=== PATIENT | female | born 1970 | race Two or more races ===

== ENCOUNTER 2025-10-17 17:32 | Inpatient (IN) | payer OTHER ==
[~2025-10-17] VITALS: Ht 165.1 cm; Wt 82.1 kg
--- NOTE | 2025-10-17 18:40 | ECG ---
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
--- NOTE | 2025-10-17 19:07 | DVH ---
EXAM: XY CHEST PORTABLE HISTORY: SOB, cough, congestion TECHNIQUE: 1 view of the chest COMPARISON: None FINDINGS/IMPRESSION: LUNGS: Small possible right-sided pleural effusion. Possible peripheral interstitial edema MEDIASTINUM: Unremarkable. BONES: No acute osseous abnormality. OTHER: None.
[2025-10-17 19:08] LABS: Hematocrit 34.3 % (36.0-46.0); Hemoglobin 11.1 g/dL (12.2-16.2); Mean Corpuscular Hemoglobin 29.0 pg (28.0-32.0); Mean Corpuscular Volume 89.6 fL (80.0-100.0); Nucleated Red Blood Cells % 0.0 %
[2025-10-17 19:28] LABS: Alanine Aminotransferase 26 U/L (7-40); Anion Gap 9 (5-15); BUN/Creatinine Ratio 12.2 (10.0-20.0); Calcium 9.3 mg/dL (8.7-10.4); Carbon Dioxide 24 mmol/L (20-31); Potassium 4.9 mmol/L (3.5-5.1); Sodium 144 mmol/L (136-145); Total Protein 7.7 g/dL (5.7-8.2)
[2025-10-17 19:29] LABS: Albumin 4.4 g/dL (3.2-4.8); Bilirubin, Total 0.4 mg/dL (0.2-1.0)
[2025-10-17 19:34] LABS: Alkaline Phosphatase 143 U/L (46-116); Blood Urea Nitrogen 30 mg/dL (9-23); Chloride 111 mmol/L (98-107); Glucose 142 mg/dL (74-106)
--- NOTE | 2025-10-17 20:18 | ED.PDOC ---
SOB-HPI HPI Comments HPI: Patient who is Indonesian-speaking presents to the ER with the chief complaint of shortness a breath x9 days. Patient states that she has been having shortness a breath, ear pain and discharge, chest pain and a sore throat for the past nine days which has been worsening since. Patient went to follow up with her PCP for which referred her to the ER for to follow up with a sharepoint solutions architect. Patient notes on also having bilateral lower extremity edema. Past Medical History: Left-sided partial blindness, diabetes, thyroid, hypertension Past Surgical History: Left knee surgery, cholecystectomy, appendectomy, hysterectomy Social History: Denies any HPI: Poor Historian. REVIEW OF SYSTEMS: CONSTITUTIONAL: Denies acute: fever, diaphoresis, chills, generalized weakness. HEAD: Denies acute: photophobia Eyes: Denies acute: Double vision, vision loss, eye pain, eye discharge. EARS: Denies acute: tinnitus, hearing loss, THROAT: Denies acute: swelling, difficulty swallowing , pain with swallowing, change in voice. NECK: Denies acute: neck pain, neck swelling, stiff neck. HEART: Denies acute : palpitations, LUNGS: Denies acute: wheezing, cough, hemoptysis ABDOMEN: Denies acute: abdominal pain, Nausea, Vomiting, diarrhea, melena , hematemesis, hematochezia SKIN: Denies acute: rash, redness, lesions, itchiness. EXTREMITIES: Denies acute: calf pain, numbness, tingling, weakness, denies pain in extremity. Denies acute: Low back pain. Neuro: Denies acute: focal neurological deficit, motor or sensory focal neurological deficit, tremors, seizure like activity, confusion, dizziness, change in mental status, loss of bowel or bladder function, cauda equina like symptoms. : Denies acute: dysuria, hematuria, flank pain, increase in urinary frequency. PSYCH: Denies acute: hallucination, suicidal ideation, homicidal ideation. FEMALE: Denies acute: abnormal vaginal bleeding, foul odor, unusual discharge. PHYSICAL EXAM: General: ----mild----acute distress, awake and alert. Head: normocephalic, atraumatic. No raccoon's eyes, no dutta sign. Neck: supple, trachea is midline, no swelling. Throat: Normal phonation. Eyes:, no erythema, no purulent discharge, no proptosis, no icterus. Heart: regular rate, regular rhythm, no significant murmur appreciated. Lungs: no apparent respiratory distress, Able to speak in full sentences. No wheezing, no rhonchi, no crackles. No stridors Clear to auscultation bilaterally. Abdomen: non tender to palpation, non distended, soft, no guarding, no rebound, + bowel sounds. Neuro: Awake, Alert, oriented to name, self, situation, follows commands GCS=15. Speech is normal. Skin: no petechia, no purpura, no cyanosis, non-pale, not jaundice. Lower extremities: --3/4 bilateral - Pitting edema no deformity, no focal swelling, no calf TTP. Makes eye contact. moves all four extremities. Face: no apparent facial droop. Ambulating in the ED with a walker ED COURSE: DISCLAIMER: This medical document was created using an electronic medical record system with voice recognition software and computerized dictation system. Although this document has been carefully reviewed, there might still be some phonetic and typographical errors. Occasional wrong-word or "sound-alike" substitutions may have occurred due to the inherent limitations of voice recognition software. These areas are purely typographical due to imperfections of the software programs and do not reflect any compromise in the patient's medical care. Please read the chart carefully and recognize, using context, where these substitutions have occurred. Chief Complaint: Shortness of Breath Time Seen by MD: 20:00 Reviewed notes: Nurses Notes, Medications, Allergies Information Source: Patient Mode of Arrival: Ambulatory Severity: Moderate EKG EKG : Pulse Rate (adult): 80 [place]: Normal Cardiac Rhythm: NSR Block: None Hypertrophy: None ST: Normal Was a procedure done? Was a procedure done?: No X-Ray, Labs, Meds, VS Vital Signs Date Time Temp Pulse Resp B/P (MAP) Pulse Ox O2 Delivery O2 Flow Rate FiO2 10/17/25 21:30 Room Air* 0 21 10/17/25 21:29 162/88 10/17/25 21:13 98.4 78 14 167/64 (98) 96 98.4 10/17/25 20:18 80 10/17/25 17:52 80 10/17/25 17:33 97.8 84 18 165/95 95 97.8 Lab Test 10/17/25 20:15 10/17/25 19:47 10/17/25 18:55 Range/Units Troponin I High Sensitivity 5 4 </=34 ng/L Influenza Type A Antigen Negative Negative Influenza Type B Antigen Negative Negative SARS-CoV-2 Antigen (Rapid) Negative NEGATIVE White Blood Count 7.1 4.4-10.8 10^3/uL Red Blood Count 3.82 L 4.0-5.20 10^6/uL Hemoglobin 11.1 L 12.2-16.2 g/dL Hematocrit 34.3 L 36.0-46.0 % Mean Corpuscular Volume 89.6 80.0-100.0 fL Mean Corpuscular Hemoglobin 29.0 28.0-32.0 pg Mean Corpuscular Hemoglobin Concent 32.4 32.0-36.0 g/dL Red Cell Distribution Width 13.6 11.8-14.3 % Platelet Count 311 140-450 10^3/uL Mean Platelet Volume 8.2 6.9-10.8 fL Neutrophils (%) (Auto) 69.9 37.0-80.0 % Lymphocytes (%) (Auto) 17.1 10.0-50.0 % Monocytes (%) (Auto) 8.7 0.0-12.0 % Eosinophils (%) (Auto) 3.6 0.0-7.0 % Basophils (%) (Auto) 0.7 0.0-2.0 % Neutrophils # (Auto) 5.0 1.6-8.6 10 ^3/uL Lymphocytes # (Auto) 1.2 0.4-5.4 10 ^3/uL Monocytes # (Auto) 0.6 0-1.3 10 ^3/uL Eosinophils # (Auto) 0.3 0-0.8 10 ^3/uL Basophils # (Auto) 0 0-0.2 10 ^3/uL Nucleated Red Blood Cells 0.0 % D-Dimer, Quantitative 0.76 H 0.0-0.49 mg/L FEU Sodium Level 144 136-145 mmol/L Potassium Level 4.9 3.5-5.1 mmol/L Chloride Level 111 H 98-107 mmol/L Carbon Dioxide Level 24 20-31 mmol/L Anion Gap 9 5-15 Blood Urea Nitrogen 30 H 9-23 mg/dL Creatinine 2.45 H 0.550-1.02 mg/dL Glomerular Filtration Rate Calc 23 >90 mL/min BUN/Creatinine Ratio 12.2 10.0-20.0 Serum Glucose 142 H 74-106 mg/dL Calcium Level 9.3 8.7-10.4 mg/dL Total Bilirubin 0.4 0.2-1.0 mg/dL Aspartate Amino Transferase (AST) 22 13-40 U/L Alanine Aminotransferase (ALT) 26 7-40 U/L Alkaline Phosphatase 143 H 46-116 U/L B-Type Natriuretic Peptide 195.00 0-100 pg/mL Total Protein 7.7 5.7-8.2 g/dL Albumin 4.4 3.2-4.8 g/dL Current Medications Medications (Trade) Dose Ordered Sig/Shawn Route Start Time Stop Time Status Last Admin Furosemide (Lasix Injection) 40 mg ONCE ONCE IV 10/17/25 21:00 10/17/25 21:01 DC 10/17/25 21:29 Aspirin (Ecotrin Enteric Coated Tablet) 325 mg ONCE ONCE PO 10/17/25 21:00 10/17/25 21:01 DC 10/17/25 21:29 Time of 1ST Reevaluation: 20:30 Reevaluation 1ST: Unchanged Patient Education/Counseling: Diagnosis, Treatment, Prognosis Family Education/Counseling: No Family Present SEPSIS Sepsis Screen Date sepsis recognized/suspect: Oct 17, 2025 Time Sepsis recognized/suspect: 1736 Recent Procedure: No On Antibiotic Therapy: No Respiratory Rate >20: No Heart Rate >90: No Temp<36 C (96.8 F) or >38.3 C: No SBP <90 or MAP <65 mmHG: No New Acute Mental Status Change: No Is the patient on CPAP, BIPAP,: No Physician Orders 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 Core 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 (10/17/25 ) Chest Portable (10/17/25 18:10) Vital Signs Date Time Temp Pulse Resp B/P (MAP) Pulse Ox O2 Delivery O2 Flow Rate FiO2 10/17/25 21:30 Room Air* 0 21 10/17/25 21:29 162/88 10/17/25 21:13 98.4 78 14 167/64 (98) 96 98.4 10/17/25 20:18 80 10/17/25 17:52 80 10/17/25 17:33 97.8 84 18 165/95 95 97.8 Laboratory Tests Test 10/17/25 18:55 White Blood Count 7.1 10^3/uL (4.4-10.8) Medications Medications Dose Ordered Sig/Shawn Route Start Time Stop Time Status Last Admin Dose Admin Aspirin 325 mg ONCE ONCE PO 10/17/25 21:00 10/17/25 21:01 DC 10/17/25 21:29 Furosemide 40 mg ONCE ONCE IV 10/17/25 21:00 10/17/25 21:01 DC 10/17/25 21:29 Departure 1 Departure Time of Disposition: 20:48 Impression: Primary Impression: Chest pain Additional Impressions: Dyspnea Acute renal insufficiency Disposition: ADMITTED INPATIENT Admit to: Tele Condition: Guarded e-Prescriptions No Active Prescriptions or Reported Meds Discharged With: Self Critical Care Note Critical Care Time?: No I personally scribed for XIAO MAO DO ([email or web address]) on 10/17/25 at 20:18. Electronically submitted by Saúl Enamorado ([email or web address]). XIAO MAO DO Oct 17, 2025 20:18
[2025-10-17 20:49] LABS: COVID19 ANTIGEN SOFIA FIA NEGATIVE (NEGATIVE)
[2025-10-17] MEDS: ASPirin-EC 325mg tab PO ONE (21:29)
[2025-10-17] MEDS: FUROSEMIDE 40 MG/4 ML VIAL IV ONE (21:29)
[2025-10-17] MEDS ORDERED: DEXTROSE (50%) 50ML SYRG IV PRN (23:00)
[2025-10-17] MEDS ORDERED: ONDANSETRON HCL 4 MG/2 ML VIAL IV PRN (23:00)
[2025-10-18] VITALS (8 sets, daily range): BP systolic 120–168; BP diastolic 71–84; PULSE 74–81; RESP 17–21; TEMP 98.1–98.3; O2SAT 96–99
[2025-10-18] MEDS ORDERED: DOCU-265 PO (01:21)
[2025-10-18] MEDS ORDERED: ATOR40TA52 PO (01:21)
[2025-10-18] MEDS ORDERED: ERGO1CAP12 PO (01:21)
[2025-10-18] MEDS ORDERED: GABA-1250 PO (01:21)
[2025-10-18] MEDS ORDERED: LISI20TA56 PO (01:21)
[2025-10-18] MEDS ORDERED: DAPA1TAB4 PO (01:21)
[2025-10-18] MEDS ORDERED: LEVO125T7 PO (01:21)
[2025-10-18] MEDS ORDERED: SODI10PA PO (01:21)
[2025-10-18] MEDS ORDERED: INSU1.2I SC (01:21)
[2025-10-18] MEDS ORDERED: AMLO1TAB23 PO (01:21)
[2025-10-18] MEDS ORDERED: HYDR50TA47 PO (01:21)
[2025-10-18] MEDS ORDERED: ASPI-325 PO (01:21)
[2025-10-18] MEDS ORDERED: GLIP5TAB21 PO (01:21)
[2025-10-18] MEDS: ACETAMINOPHEN 325 MG TAB PO PRN (02:43)
--- NOTE | 2025-10-18 04:25 | DVHHP2 ---
History of Present Illness Reason for Visit: Shortness for breath History of Present Illness 55-year-old female presents for evaluation of shortness for breath. Patient reports a one-week history of shortness for breath with associated dizziness. She also reports mild bilateral lower extremity edema. Denies cough or fever. No abdominal pain. Past Medical History Diabetes mellitus, thyroid, hypertension, kidney disease Past Surgical History Left knee surgery, cholecystectomy, appendectomy, hysterectomy Family History Noncontributory Smoke: No ALCOHOL: none Drugs: None Lives: with Family Review of Systems Review of Systems Review of systems are currently negative otherwise addressed in HPI. Allergies: Coded Allergies: NO KNOWN ALLERGIES (Unverified , 09/19/25) Medications Current Medications Medications Dose Ordered Sig/Shawn Route Start Time Stop Time Status Last Admin Dose Admin Furosemide 40 mg DAILY IV 10/18/25 10:00 Amlodipine Besylate 10 mg DAILY PO 10/18/25 10:00 Sodium Bicarbonate 650 mg BID PO 10/18/25 10:00 Hydralazine HCl 10 mg Q6HP PRN PO 10/17/25 23:00 10/18/25 00:03 10 MG Diagnostic Test (Pha) 1 strip ACHS 10/18/25 07:00 Insulin Human Regular ACHS SC 10/18/25 07:00 Dextrose 50 ml UD PRN IV 10/17/25 23:00 Ondansetron HCl 4 mg Q4HP PRN IV 10/17/25 23:00 Acetaminophen 650 mg Q6HP PRN PO 10/17/25 23:00 10/18/25 02:43 650 MG Exam Vital Signs Vital Signs Date Time Temp Pulse Resp B/P (MAP) Pulse Ox O2 Delivery O2 Flow Rate FiO2 10/18/25 02:43 98.5 10/18/25 01:17 81 18 97 Room Air* 0 21 10/18/25 00:03 165/75 Exam Gen: 55-year-old female in mild distress Skin: Warm, dry, normal color and texture, no rash. HEENT: Normocephalic atraumatic, mucous membranes moist and pink. Neck: Cervical and supraclavicular nodes normal without enlargement, trachea is midline, thyroid gland is normal without masses. Pulmonary: Clear to auscultation and percussion bilaterally. Cardiac: Regular rate and rhythm. No murmur Abdomen: Soft, nontender, nondistended, bowel sounds present all 4 quadrants, no guarding, no rigidity, no organomegaly. Extremities: No cyanosis, clubbing, no edema Neuro: Cranial nerves II through XII grossly intact, normal affect and speech, no focal motor deficits. Labs/Xrays ORDERING PHYSICIAN: XIAO MAO DO PROCEDURE(s): CXRP - CHEST PORTABLE REASON: SOB, cough, congestion ORDER NUMBER(s): [id number], ACCESSION NUMBER(s): [id number] EXAM: XY CHEST PORTABLE HISTORY: SOB, cough, congestion TECHNIQUE: 1 view of the chest COMPARISON: None FINDINGS/IMPRESSION: LUNGS: Small possible right-sided pleural effusion. Possible peripheral interstitial edema MEDIASTINUM: Unremarkable. BONES: No acute osseous abnormality. OTHER: None. Labs Test 10/17/25 20:15 10/17/25 19:47 10/17/25 18:55 Range/Units Troponin I High Sensitivity 5 </=34 ng/L Influenza Type A Antigen Negative Negative Influenza Type B Antigen Negative Negative SARS-CoV-2 Antigen (Rapid) Negative NEGATIVE White Blood Count 7.1 4.4-10.8 10^3/uL Red Blood Count 3.82 L 4.0-5.20 10^6/uL Hemoglobin 11.1 L 12.2-16.2 g/dL Hematocrit 34.3 L 36.0-46.0 % Mean Corpuscular Volume 89.6 80.0-100.0 fL Mean Corpuscular Hemoglobin 29.0 28.0-32.0 pg Mean Corpuscular Hemoglobin Concent 32.4 32.0-36.0 g/dL Red Cell Distribution Width 13.6 11.8-14.3 % Platelet Count 311 140-450 10^3/uL Mean Platelet Volume 8.2 6.9-10.8 fL Neutrophils (%) (Auto) 69.9 37.0-80.0 % Lymphocytes (%) (Auto) 17.1 10.0-50.0 % Monocytes (%) (Auto) 8.7 0.0-12.0 % Eosinophils (%) (Auto) 3.6 0.0-7.0 % Basophils (%) (Auto) 0.7 0.0-2.0 % Neutrophils # (Auto) 5.0 1.6-8.6 10 ^3/uL Lymphocytes # (Auto) 1.2 0.4-5.4 10 ^3/uL Monocytes # (Auto) 0.6 0-1.3 10 ^3/uL Eosinophils # (Auto) 0.3 0-0.8 10 ^3/uL Basophils # (Auto) 0 0-0.2 10 ^3/uL Nucleated Red Blood Cells 0.0 % D-Dimer, Quantitative 0.76 H 0.0-0.49 mg/L FEU Sodium Level 144 136-145 mmol/L Potassium Level 4.9 3.5-5.1 mmol/L Chloride Level 111 H 98-107 mmol/L Carbon Dioxide Level 24 20-31 mmol/L Anion Gap 9 5-15 Blood Urea Nitrogen 30 H 9-23 mg/dL Creatinine 2.45 H 0.550-1.02 mg/dL Glomerular Filtration Rate Calc 23 >90 mL/min BUN/Creatinine Ratio 12.2 10.0-20.0 Serum Glucose 142 H 74-106 mg/dL Calcium Level 9.3 8.7-10.4 mg/dL Total Bilirubin 0.4 0.2-1.0 mg/dL Aspartate Amino Transferase (AST) 22 13-40 U/L Alanine Aminotransferase (ALT) 26 7-40 U/L Alkaline Phosphatase 143 H 46-116 U/L B-Type Natriuretic Peptide 195.00 0-100 pg/mL Total Protein 7.7 5.7-8.2 g/dL Albumin 4.4 3.2-4.8 g/dL SEPSIS Sepsis Screen Date sepsis recognized/suspect: Oct 17, 2025 Time Sepsis recognized/suspect: 1736 Recent Procedure: No On Antibiotic Therapy: No Respiratory Rate >20: No Heart Rate >90: No Temp<36 C (96.8 F) or >38.3 C: No SBP <90 or MAP <65 mmHG: No New Acute Mental Status Change: No Is the patient on CPAP, BIPAP,: No Physician Orders *Dr. [facility] (10/17/25 22:57) Furosemide Injection (Lasix Injection) (10/18/25 10:00) Amlodipine Tablet (Norvasc Tablet) (10/18/25 10:00) Sodium Bicarb Tab (10/18/25 10:00) Hydralazine Hcl Tablet (Apresoline Table (10/17/25 23:00) Basic Metabolic Panel (10/18/25 04:00) Glucose Blood (Accu-Chek Comfort Curve T (10/18/25 07:00) Insulin R (Human) (Insulin R) (10/18/25 07:00) Dextrose 50% Syringe (10/17/25 23:00) Admit (10/17/25 22:57) Renal Standard(2gna,3gk,Lopho) (10/18/25 Breakfast) Ondansetron Hcl (Zofran) (10/17/25 23:00) Complete Blood Count (10/18/25 04:00) Echo 2d Mode Cardiac Dop (10/17/25 22:57) Condition: Stable (10/17/25 22:57) Acetaminophen Tablet (Tylenol Tablet) (10/17/25 23:00) Bedrest With Bathroom Privileg (10/17/25 22:57) Vital Signs Date Time Temp Pulse Resp B/P (MAP) Pulse Ox O2 Delivery O2 Flow Rate FiO2 10/18/25 02:43 98.5 10/18/25 01:17 81 18 97 Room Air* 0 21 10/18/25 00:03 165/75 10/18/25 00:00 75 16 165/75 (105) 96 10/17/25 21:30 Room Air* 0 21 10/17/25 21:29 162/88 10/17/25 21:13 98.4 78 14 167/64 (98) 96 98.4 Laboratory Tests Test 10/17/25 18:55 White Blood Count 7.1 10^3/uL (4.4-10.8) Medications Medications Dose Ordered Sig/Shawn Route Start Time Stop Time Status Last Admin Dose Admin Acetaminophen 650 mg Q6HP PRN PO 10/17/25 23:00 10/18/25 02:43 650 MG Aspirin 325 mg ONCE ONCE PO 10/17/25 21:00 10/17/25 21:01 DC 10/17/25 21:29 325 MG Furosemide 40 mg ONCE ONCE IV 10/17/25 21:00 10/17/25 21:01 DC 10/17/25 21:29 40 MG Hydralazine HCl 10 mg Q6HP PRN PO 10/17/25 23:00 10/18/25 00:03 10 MG Assessment/Plan Assessment/Plan Assessment Acute renal failure Diabetes mellitus Hypertension ? Heart failure Plan Admit the patient to Med surge to the hospitalist Nephrology consultation Echocardiogram pending Resume home medications Continue treatment per orders. Plan discussed with: Patient My Orders Orders - DILAN ALLAN Procedure Category Date Status Time *Dr. [facility] CONS 10/17/25 Transmitted -[place] 22:57 Furosemide Injection PHA 10/18/25 In Process (Lasix Injection) 10:00 Amlodipine Tablet PHA 10/18/25 In Process (Norvasc Tablet) 10:00 Sodium Bicarb Tab PHA 10/18/25 In Process 10:00 Hydralazine Hcl PHA 10/17/25 In Process Tablet (Apresoline 23:00 Basic Metabolic Panel LAB 10/18/25 Logged 04:00 Glucose Blood PHA 10/18/25 In Process (Accu-Chek Comfort 07:00 Insulin R (Human) PHA 10/18/25 In Process (Insulin R) 07:00 Dextrose 50% Syringe PHA 10/17/25 In Process 23:00 Admit ADMIT 10/17/25 Transmitted 22:57 Renal DIET 10/18/25 Transmitted Standard(2gna,3gk,Lopho) Breakfast Ondansetron Hcl PHA 10/17/25 In Process (Zofran) 23:00 Complete Blood Count LAB 10/18/25 Logged 04:00 Echo 2d Mode Cardiac US 10/17/25 Logged DOP 22:57 Condition: Stable MINDY 10/17/25 In Process 22:57 Acetaminophen Tablet PHA 10/17/25 In Process (Tylenol Tablet) 23:00 Bedrest With Bathroom MINDY 10/17/25 In Process Privileg 22:57 Date of Service: Oct 17, 2025 Billing Provider: DILAN ALLAN Common Visit Codes: [id number] INP/OBS CARE (HIGH) DILAN ALLAN Oct 18, 2025 04:24
[2025-10-18 06:34] LABS: Hematocrit 32.1 % (36.0-46.0); Hemoglobin 10.5 g/dL (12.2-16.2); Mean Corpuscular Hemoglobin 29.1 pg (28.0-32.0); Mean Corpuscular Volume 89.3 fL (80.0-100.0); Nucleated Red Blood Cells % 0.0 %
[2025-10-18 06:48] LABS: Potassium 4.4 mmol/L (3.5-5.1); Sodium 141 mmol/L (136-145)
[2025-10-18 06:49] LABS: Anion Gap 9 (5-15); Calcium 9.0 mg/dL (8.7-10.4); Carbon Dioxide 23 mmol/L (20-31)
[2025-10-18 06:54] LABS: BUN/Creatinine Ratio 14.2 (10.0-20.0)
[2025-10-18 06:58] LABS: Blood Urea Nitrogen 31 mg/dL (9-23); Chloride 109 mmol/L (98-107); Glucose 118 mg/dL (74-106)
[2025-10-18] MEDS: ACCU-CHEK COMFORT CURVE STRIP VI SCH (07:00)
[2025-10-18] MEDS: InsuLIN REG 1unit/0.01ml Soln (100units/ml) SC SCH (07:00)
[2025-10-18] MEDS: SODIUM BICARBONATE 650 MG TAB PO SCH (09:24)
[2025-10-18] MEDS: FUROSEMIDE 40 MG/4 ML VIAL IV SCH (09:24)
--- NOTE | 2025-10-18 11:45 | DVHPN2 ---
Subjective The patient seen and examined at bedside, still have shortness of breath. The patient on 2 L of oxygen. Reviewed: Care Plan, H&P, Labs, Medications, Previous Orders, Radiology Changes from previous H/P or p: No Changes Objective Vitals Vital Signs Date Time Temp Pulse Resp B/P (MAP) Pulse Ox O2 Delivery O2 Flow Rate FiO2 10/18/25 09:25 168/83 10/18/25 09:00 98.1 74 21 98 98.1 10/18/25 01:17 Room Air* 0 21 Intake/Output Intake and Output 10/18/25 07:00 Intake Total 150 ml Balance 150 ml Intake Oral 150 ml # Voids 3 General Appearance: Alert, Oriented X3, Cooperative, No acute distress HEENT: Atraumatic, PERRLA, EOMI, Mucous membr. moist/pink Neck: Supple Lungs: Clear to auscultation, Normal air movement Cardiovascular: Regular rate, Normal S1, Normal S2, No murmurs, Gallops Abdomen: Normal bowel sounds, Soft, No tenderness Extremities: Other (+2 edema bilateral) Neuro: Cranial nerves 3-12 NL Psych/Mental Status: Mental status NL Medications Current Medications Medications Dose Ordered Sig/Shawn Route Start Time Stop Time Status Last Admin Dose Admin Furosemide 40 mg DAILY IV 10/18/25 10:00 10/18/25 09:24 40 MG Amlodipine Besylate 10 mg DAILY PO 10/18/25 10:00 10/18/25 09:25 10 MG Sodium Bicarbonate 650 mg BID PO 10/18/25 10:00 10/18/25 09:24 650 MG Hydralazine HCl 10 mg Q6HP PRN PO 10/17/25 23:00 10/18/25 00:03 10 MG Diagnostic Test (Pha) 1 strip ACHS 10/18/25 07:00 10/18/25 07:00 1 STRIP Insulin Human Regular ACHS SC 10/18/25 07:00 Dextrose 50 ml UD PRN IV 10/17/25 23:00 Ondansetron HCl 4 mg Q4HP PRN IV 10/17/25 23:00 Acetaminophen 650 mg Q6HP PRN PO 10/17/25 23:00 10/18/25 02:43 650 MG Laboratory Results Laboratory Tests 10/18/25 05:46 Chemistry Test 10/17/25 18:55 10/18/25 05:46 Albumin 4.4 g/dL (3.2-4.8) Calcium Level 9.3 mg/dL (8.7-10.4) 9.0 mg/dL (8.7-10.4) Total Protein 7.7 g/dL (5.7-8.2) Coagulation Test 10/17/25 18:55 D-Dimer, Quantitative 0.76 mg/L FEU (0.0-0.49) H Cardiac Markers Test 10/17/25 18:55 B-Type Natriuretic Peptide 195.00 pg/mL (0-100) LFT Test 10/17/25 18:55 Alanine Aminotransferase (ALT) 26 U/L (7-40) Alkaline Phosphatase 143 U/L (46-116) H Aspartate Amino Transferase (AST) 22 U/L (13-40) Total Bilirubin 0.4 mg/dL (0.2-1.0) Labs and/or images reviewed: Labs reviewed by me Assessment/Plan Assessment/Plan Acute renal failure /Chronic renal failure stage 3 Hyperkalemia Diabetes mellitus Hypertension Bilateral LE edema Muscle spasm, bilateral UE and LE Acute Congestive Heart failure, type unknown Continue current management I will check her Magnesium I will start her on SSI moderate scale I will consult tool repairer bench I will consult Licensed Surveyor I will order 2 D echo Continue Lasix Plan discussed with: Patient Date of Service: Oct 18, 2025 Billing Provider: NORY ALMANZA MD Common Visit Codes: [id number] INP/OBS CARE(HIGH) NORY ALMANZA MD Oct 18, 2025 11:45
[2025-10-18 13:37] LABS: Chloride 104 mmol/L (98-107); Sodium 140 mmol/L (136-145)
[2025-10-18 13:38] LABS: Anion Gap 10 (5-15); Calcium 9.9 mg/dL (8.7-10.4); Carbon Dioxide 26 mmol/L (20-31)
[2025-10-18 13:43] LABS: BUN/Creatinine Ratio 15.3 (10.0-20.0); Blood Urea Nitrogen 35 mg/dL (9-23); Glucose 124 mg/dL (74-106); Potassium 5.5 mmol/L (3.5-5.1)
[2025-10-18 13:44] LABS: Magnesium 2.5 mg/dL (1.6-2.6)
--- NOTE | 2025-10-18 16:30 | DVHINCON2 ---
Date of service: Oct 18, [address] Mirna Marie Reason for Consultation DANYELL on CKD History of Present Illness 55 Y/O F with history of CKD, DM, HTN, cholecystectomy, appendectomy, and hysterectomy presented with chief complaint of SOB, associated with chest pain, left sided, distended abdomen, bilateral lower extremity swelling for the past 9 days. CXR shows interstitial edema. Patient was started on IV loop diuretics. In the ER BP: 165/95 mmHg. labs showed Cr of 2.45 mg/dl. it has stayed stable over the past 2 days, and most recent Cr is 2.29 mg/dl. K 4.4 to 5.5 mmol/l. WBC is 6.7, and Hb: 10.5 g/dl. Nephrology consulted for DANYELL on CKD. Primary car unloader is Dr. Davis Past Medical History Past Medical History: Left-sided partial blindness, diabetes, thyroid disease, hypertension Past Surgical History Past Surgical History: Left knee surgery, cholecystectomy, appendectomy, hysterectomy Allergies: Coded Allergies: NO KNOWN ALLERGIES (Unverified , 09/19/25) Home Meds Reported Medications Dapagliflozin Propanediol (Farxiga) 10 Mg Tab, 5 MG PO DAILY, TAB 10/18/25 Insulin Glargine (Toujeo Solostar) 300 Unit/Ml Inj, SC 10/18/25 Docusate Sodium (Docusate Sodium) 100 Mg Cap, 1 CAP PO DAILY 10/18/25 Levothyroxine Sodium (Levothyroxine Sodium) 125 Mcg Tab, 1 TAB PO DAILY 10/18/25 Gabapentin (Gabapentin) 300 Mg Cap, 1 CAP PO BID 10/18/25 Hydralazine Hcl (Hydralazine Hcl) 50 Mg Tab, 1 TAB PO TID 10/18/25 Amlodipine Besylate (Amlodipine Besylate) 10 Mg Tab, 1 TAB PO DAILY 10/18/25 Atorvastatin Calcium (ATORVASTATIN CALCIUM) 40 Mg Tab, 1 TAB PO 10/18/25 Aspirin (Aspirin Low Dose) 81 Mg Tab, 1 TAB PO DAILY 10/18/25 Ergocalciferol (Vitamin D) 50,000 Unit Cap, 1 CAP PO QWEEKLY 10/18/25 Glipizide (Glipizide) 5 Mg Tab, 1 TAB PO BID 10/18/25 Sodium Zirconium Cyclosilicate (Lokelma) 10 Gm Juan Carlos, 1 PKT PO DAILY 10/18/25 Lisinopril (Lisinopril) 20 Mg Tab, 1 TAB PO DAILY 10/18/25 Current Medications Current Medications Medications (Trade) Dose Ordered Sig/Shawn Route PRN Reason Start Time Stop Time Status Last Admin Furosemide (Lasix Injection) 40 mg DAILY IV 10/18/25 10:00 10/18/25 09:24 Amlodipine Besylate (Norvasc Tablet) 10 mg DAILY PO 10/18/25 10:00 10/18/25 09:25 Sodium Bicarbonate 650 mg BID PO 10/18/25 10:00 10/18/25 09:24 Hydralazine HCl (Apresoline Tablet) 10 mg Q6HP PRN PO SBP>150 10/17/25 23:00 10/18/25 00:03 Diagnostic Test (Pha) (Accu-Chek Comfort Curve T) 1 strip ACHS 10/18/25 07:00 10/18/25 12:08 Insulin Human Regular (InsuLIN R) ACHS SC 10/18/25 07:00 Dextrose 50 ml UD PRN IV Blood Sugar LESS THAN 60 10/17/25 23:00 Ondansetron HCl (Zofran) 4 mg Q4HP PRN IV NAUSEA / VOMITING 10/17/25 23:00 Acetaminophen (Tylenol Tablet) 650 mg Q6HP PRN PO PAIN SCALE 1-3 OR TEMP>100.4 10/17/25 23:00 10/18/25 02:43 Family History: Diabetes mellitus G8 MOTHER G8 FATHER Review of Systems As per HPI, all other systems were reviewed and are negative H&P Exam Vital Signs/I&O Vital Sign Date Time Temp Pulse Resp B/P (MAP) Pulse Ox O2 Delivery O2 Flow Rate FiO2 10/18/25 12:54 98.2 77 21 156/84 (108) 99 98.2 10/18/25 08:00 Nasal Cannula* 3 32 Intake and Output 10/17/25 10/18/25 19:00 07:00 Intake Total 150 ml Balance 150 ml Intake Oral 150 ml # Voids 3 Physical Exam Gen: NAD HEENT: NC,AT Lungs: crackles lung bases Cardiac: RRR, no murmur Abd: soft, no tenderness Ext: +1 edema b/l legs Neuro: no focal deficits Labs/Diagnostic Data Labs/Diagnostic Data Laboratory Tests Test 10/18/25 13:04 10/18/25 11:59 10/18/25 05:46 10/17/25 20:15 Range/Units Sodium Level 140 141 136-145 mmol/L Potassium Level 5.5 H 4.4 3.5-5.1 mmol/L Chloride Level 104 109 H 98-107 mmol/L Carbon Dioxide Level 26 23 20-31 mmol/L Anion Gap 10 9 5-15 Blood Urea Nitrogen 35 H 31 H 9-23 mg/dL Creatinine 2.29 H 2.18 H 0.550-1.02 mg/dL Glomerular Filtration Rate Calc 25 26 >90 mL/min BUN/Creatinine Ratio 15.3 14.2 10.0-20.0 Serum Glucose 124 H 118 H 74-106 mg/dL Calcium Level 9.9 9.0 8.7-10.4 mg/dL Phosphorus Level 5.1 2.4-5.1 mg/dL Magnesium Level 2.5 1.6-2.6 mg/dL POC Glucose 143 H 123 H 70-106 mg/dl White Blood Count 6.7 4.4-10.8 10^3/uL Red Blood Count 3.60 L 4.0-5.20 10^6/uL Hemoglobin 10.5 L 12.2-16.2 g/dL Hematocrit 32.1 L 36.0-46.0 % Mean Corpuscular Volume 89.3 80.0-100.0 fL Mean Corpuscular Hemoglobin 29.1 28.0-32.0 pg Mean Corpuscular Hemoglobin Concent 32.6 32.0-36.0 g/dL Red Cell Distribution Width 13.7 11.8-14.3 % Platelet Count 264 140-450 10^3/uL Mean Platelet Volume 8.4 6.9-10.8 fL Neutrophils (%) (Auto) 69.4 37.0-80.0 % Lymphocytes (%) (Auto) 16.7 10.0-50.0 % Monocytes (%) (Auto) 9.0 0.0-12.0 % Eosinophils (%) (Auto) 4.1 0.0-7.0 % Basophils (%) (Auto) 0.8 0.0-2.0 % Neutrophils # (Auto) 4.6 1.6-8.6 10 ^3/uL Lymphocytes # (Auto) 1.1 0.4-5.4 10 ^3/uL Monocytes # (Auto) 0.6 0-1.3 10 ^3/uL Eosinophils # (Auto) 0.3 0-0.8 10 ^3/uL Basophils # (Auto) 0.1 0-0.2 10 ^3/uL Nucleated Red Blood Cells 0.0 % Troponin I High Sensitivity 5 </=34 ng/L Test 10/17/25 19:47 10/17/25 18:55 Range/Units Influenza Type A Antigen Negative Negative Influenza Type B Antigen Negative Negative SARS-CoV-2 Antigen (Rapid) Negative NEGATIVE White Blood Count 7.1 4.4-10.8 10^3/uL Red Blood Count 3.82 L 4.0-5.20 10^6/uL Hemoglobin 11.1 L 12.2-16.2 g/dL Hematocrit 34.3 L 36.0-46.0 % Mean Corpuscular Volume 89.6 80.0-100.0 fL Mean Corpuscular Hemoglobin 29.0 28.0-32.0 pg Mean Corpuscular Hemoglobin Concent 32.4 32.0-36.0 g/dL Red Cell Distribution Width 13.6 11.8-14.3 % Platelet Count 311 140-450 10^3/uL Mean Platelet Volume 8.2 6.9-10.8 fL Neutrophils (%) (Auto) 69.9 37.0-80.0 % Lymphocytes (%) (Auto) 17.1 10.0-50.0 % Monocytes (%) (Auto) 8.7 0.0-12.0 % Eosinophils (%) (Auto) 3.6 0.0-7.0 % Basophils (%) (Auto) 0.7 0.0-2.0 % Neutrophils # (Auto) 5.0 1.6-8.6 10 ^3/uL Lymphocytes # (Auto) 1.2 0.4-5.4 10 ^3/uL Monocytes # (Auto) 0.6 0-1.3 10 ^3/uL Eosinophils # (Auto) 0.3 0-0.8 10 ^3/uL Basophils # (Auto) 0 0-0.2 10 ^3/uL Nucleated Red Blood Cells 0.0 % D-Dimer, Quantitative 0.76 H 0.0-0.49 mg/L FEU Sodium Level 144 136-145 mmol/L Potassium Level 4.9 3.5-5.1 mmol/L Chloride Level 111 H 98-107 mmol/L Carbon Dioxide Level 24 20-31 mmol/L Anion Gap 9 5-15 Blood Urea Nitrogen 30 H 9-23 mg/dL Creatinine 2.45 H 0.550-1.02 mg/dL Glomerular Filtration Rate Calc 23 >90 mL/min BUN/Creatinine Ratio 12.2 10.0-20.0 Serum Glucose 142 H 74-106 mg/dL Calcium Level 9.3 8.7-10.4 mg/dL Total Bilirubin 0.4 0.2-1.0 mg/dL Aspartate Amino Transferase (AST) 22 13-40 U/L Alanine Aminotransferase (ALT) 26 7-40 U/L Alkaline Phosphatase 143 H 46-116 U/L Troponin I High Sensitivity 4 </=34 ng/L B-Type Natriuretic Peptide 195.00 0-100 pg/mL Total Protein 7.7 5.7-8.2 g/dL Albumin 4.4 3.2-4.8 g/dL Assessment Assessment: DANYELL secondary to cardiorenal syndrome CKD III Chest pain , negative serial troponin. r/o ACS Acute on Chronic CHF, unknown EF. HTN DM Fluid overload Metabolic acidosis Hypothyroidism Plan: Continue Lasix 40 mg IV daily fluid restriction edema has been improving. Lokelma 10 g PO x1 UA, UPCR Amlodipine 10 mg daily sodium bicarb 650 mg PO BID Resume levothyroxine Obtain 2D Echo Cardiology consult Strict I&Os Plan discussed with: Patient, Spouse SAMSON SABA MD Oct 18, 2025 16:30
[2025-10-18] MEDS: SODIUM ZIRCONIUM CYCL 10 GM PAK PO ONE (17:19)
[2025-10-18 23:55] LABS: Protein, Urine 183.4 mg/dL (1-14)
[2025-10-19] VITALS (8 sets, daily range): BP systolic 112–141; BP diastolic 64–88; PULSE 70–91; RESP 16–20; TEMP 97.6–98.3; O2SAT 95–100
[2025-10-19 00:33] LABS: Urine Protein, UAD 2+ (Negative)
--- NOTE | 2025-10-19 13:53 | DVHPN2 ---
Subjective The patient seen and examined at bedside, still have shortness of breath. The patient on 2 L of oxygen. Reviewed: Care Plan, H&P, Labs, Medications, Previous Orders, Radiology Changes from previous H/P or p: No Changes Objective Vitals Vital Signs Date Time Temp Pulse Resp B/P (MAP) Pulse Ox O2 Delivery O2 Flow Rate FiO2 10/19/25 13:00 98.1 81 20 137/75 (95) 95 98.1 10/19/25 08:10 Nasal Cannula* 2 28 Intake/Output Intake and Output 10/19/25 07:00 Intake Total 1305 ml Balance 1305 ml Intake Oral 1305 ml # Voids 10 General Appearance: Alert, Oriented X3, Cooperative, No acute distress HEENT: Atraumatic, PERRLA, EOMI, Mucous membr. moist/pink Neck: Supple Lungs: Clear to auscultation, Normal air movement Cardiovascular: Regular rate, Normal S1, Normal S2, No murmurs, Gallops Abdomen: Normal bowel sounds, Soft, No tenderness Extremities: Other (+2 edema bilateral) Neuro: Cranial nerves 3-12 NL Psych/Mental Status: Mental status NL Medications Current Medications Medications Dose Ordered Sig/Shawn Route Start Time Stop Time Status Last Admin Dose Admin Furosemide 40 mg DAILY IV 10/18/25 10:00 10/19/25 09:36 40 MG Amlodipine Besylate 10 mg DAILY PO 10/18/25 10:00 10/19/25 09:37 10 MG Sodium Bicarbonate 650 mg BID PO 10/18/25 10:00 10/19/25 09:37 650 MG Hydralazine HCl 10 mg Q6HP PRN PO 10/17/25 23:00 10/18/25 00:03 10 MG Diagnostic Test (Pha) 1 strip ACHS 10/18/25 07:00 10/19/25 11:49 1 STRIP Insulin Human Regular ACHS SC 10/18/25 07:00 10/19/25 11:52 6 UNITS Dextrose 50 ml UD PRN IV 10/17/25 23:00 Ondansetron HCl 4 mg Q4HP PRN IV 10/17/25 23:00 Acetaminophen 650 mg Q6HP PRN PO 10/17/25 23:00 10/18/25 02:43 650 MG Laboratory Results Laboratory Tests 10/18/25 05:46 10/18/25 13:04 Urinalysis Test 10/18/25 23:11 Urine Color Light-yellow (Yellow) Urine Clarity Clear (Clear) Urine pH 7.0 (5.0-9.0) Urine Specific [place] 1.011 (1.001-1.035) Urine Protein 2+ (Negative) H Urine Ketones Negative (Negative) Urine Blood Trace /uL (Negative) H Urine Nitrite Negative (Negative) Urine Bilirubin Negative (Negative) Urine Urobilinogen Normal mg/dL (Negative) Urine Leukocyte Esterase Negative /uL (Negative) Urine RBC 2 /hpf (0 - 4) Urine Microscopic WBC 1 /HPF (0-5) Urine Squamous Epithelial Cells Few /hpf (<5) Urine Bacteria None seen /hpf (None Seen) Urine Creatinine 54.62 mg/dL (30.0-125.0) Urine Protein/Creatinine Ratio 3.36 Urine Glucose 4+ mg/dL (Normal) H Urine Total Protein 183.4 mg/dL (1-14) H Labs and/or images reviewed: Labs reviewed by me Assessment/Plan Assessment/Plan Acute renal failure /Chronic renal failure stage 3 Hyperkalemia Diabetes mellitus Hypertension Bilateral LE edema Muscle spasm, bilateral UE and LE Acute Congestive Heart failure, type unknown Continue current management I will check her Magnesium I will start her on SSI moderate scale Appreciate canvas goods supervisor input I will follow up with 2 D echo Continue Lasix Plan discussed with: Patient Date of Service: Oct 19, 2025 Billing Provider: NORY ALMANZA MD Common Visit Codes: [id number] INP/OBS CARE(HIGH) NORY ALMANZA MD Oct 19, 2025 13:53
--- NOTE | 2025-10-19 14:27 | DVHPN2 ---
Progress Note - Dictate Date Seen: Oct 19, 2025 Medical Necessity Reason Pt with a Central, PICC or Fol: No vital signs Vital Sign Date Time Temp Pulse Resp B/P (MAP) Pulse Ox O2 Delivery O2 Flow Rate FiO2 10/19/25 13:00 98.1 81 20 137/75 (95) 95 98.1 10/19/25 08:10 Nasal Cannula* 2 28 Total Intake and Output 10/18/25 10/18/25 10/19/25 15:00 23:00 07:00 Intake Total 630 ml 675 ml Balance 630 ml 675 ml medications Current Medications Medications Dose Ordered Sig/Shawn Route Start Time Stop Time Status Last Admin Dose Admin Furosemide 40 mg DAILY IV 10/18/25 10:00 10/19/25 09:36 40 MG Amlodipine Besylate 10 mg DAILY PO 10/18/25 10:00 10/19/25 09:37 10 MG Sodium Bicarbonate 650 mg BID PO 10/18/25 10:00 10/19/25 09:37 650 MG Hydralazine HCl 10 mg Q6HP PRN PO 10/17/25 23:00 10/18/25 00:03 10 MG Diagnostic Test (Pha) 1 strip ACHS 10/18/25 07:00 10/19/25 11:49 1 STRIP Insulin Human Regular ACHS SC 10/18/25 07:00 10/19/25 11:52 6 UNITS Dextrose 50 ml UD PRN IV 10/17/25 23:00 Ondansetron HCl 4 mg Q4HP PRN IV 10/17/25 23:00 Acetaminophen 650 mg Q6HP PRN PO 10/17/25 23:00 10/18/25 02:43 650 MG objective Gen: NAD HEENT: NC,AT Lungs: CTA b/l Cardiac: RRR, no murmur Abd: soft, no tenderness Ext: trace edema b/l legs Neuro: no focal deficits laboratory and microbiology Laboratory Tests 10/18/25 13:04 10/18/25 05:46 Test 10/18/25 13:04 Range/Units Serum Glucose 124 H 74-106 mg/dL Assessment/Plan Assessment: DANYELL secondary to cardiorenal syndrome CKD III Chest pain , negative serial troponin. r/o ACS Acute on Chronic CHF, unknown EF. HTN DM Proteinuria, 3.3 g/g on UPCR on 10/18/25 Fluid overload Metabolic acidosis Hypothyroidism Plan: Continue Lasix 40 mg IV daily. change to lasix 40 mg PO daily upon discharge fluid restriction edema significantly improved UA, UPCR Amlodipine 10 mg daily sodium bicarb 650 mg PO BID Resume levothyroxine Obtain 2D Echo Cardiology consult Strict I&Os Plan discussed with: Patient SAMSON SABA MD Oct 19, 2025 14:27
[2025-10-20 01:00] VITALS: BP 118/71; PULSE 79; RESP 16; TEMP 98.1; O2SAT 95
[2025-10-20 05:00] VITALS: BP 136/73; PULSE 83; RESP 18; TEMP 98; O2SAT 97
[2025-10-20 06:41] LABS: Hematocrit 37.4 % (36.0-46.0); Hemoglobin 12.7 g/dL (12.2-16.2); Mean Corpuscular Hemoglobin 30.1 pg (28.0-32.0); Mean Corpuscular Volume 88.4 fL (80.0-100.0); Nucleated Red Blood Cells % 0.0 %
[2025-10-20 06:52] LABS: Anion Gap 12 (5-15); Calcium 9.1 mg/dL (8.7-10.4); Carbon Dioxide 25 mmol/L (20-31); Chloride 106 mmol/L (98-107); Potassium 4.2 mmol/L (3.5-5.1); Sodium 143 mmol/L (136-145)
[2025-10-20 06:58] LABS: BUN/Creatinine Ratio 14.8 (10.0-20.0)
[2025-10-20 06:59] LABS: Blood Urea Nitrogen 38 mg/dL (9-23); Glucose 171 mg/dL (74-106); Magnesium 2.6 mg/dL (1.6-2.6)
--- NOTE | 2025-10-20 07:18 | DVHPN2 ---
Progress Note - Dictate Date Seen: Oct 20, 2025 Medical Necessity Reason Pt with a Central, PICC or Fol: No Subjective lower extremity swelling has resolved. vital signs Vital Sign Date Time Temp Pulse Resp B/P (MAP) Pulse Ox O2 Delivery O2 Flow Rate FiO2 10/20/25 05:00 98.0 83 18 136/73 (94) 97 98.0 10/19/25 20:00 Room Air* 2 N/A Nasal Cannula* Total Intake and Output 10/19/25 10/19/25 10/20/25 15:00 23:00 07:00 Intake Total 250 ml 50 ml 240 ml Output Total 1100 ml 600 ml Balance 250 ml -1050 ml -360 ml medications Current Medications Medications Dose Ordered Sig/Shawn Route Start Time Stop Time Status Last Admin Dose Admin Furosemide 40 mg DAILY IV 10/18/25 10:00 10/19/25 09:36 40 MG Amlodipine Besylate 10 mg DAILY PO 10/18/25 10:00 10/19/25 09:37 10 MG Sodium Bicarbonate 650 mg BID PO 10/18/25 10:00 10/19/25 21:30 650 MG Hydralazine HCl 10 mg Q6HP PRN PO 10/17/25 23:00 10/18/25 00:03 10 MG Diagnostic Test (Pha) 1 strip ACHS 10/18/25 07:00 10/20/25 06:15 1 STRIP Insulin Human Regular ACHS SC 10/18/25 07:00 10/20/25 06:17 3 UNITS Dextrose 50 ml UD PRN IV 10/17/25 23:00 Ondansetron HCl 4 mg Q4HP PRN IV 10/17/25 23:00 Acetaminophen 650 mg Q6HP PRN PO 10/17/25 23:00 10/18/25 02:43 650 MG objective Gen: NAD HEENT: NC,AT Lungs: CTA b/l Cardiac: RRR, no murmur Abd: soft, no tenderness Ext: trace edema b/l legs Neuro: no focal deficits laboratory and microbiology Laboratory Tests 10/20/25 05:35 Test 10/20/25 05:35 Range/Units Serum Glucose 171 H 74-106 mg/dL Assessment/Plan Assessment: DANYELL secondary to cardiorenal syndrome CKD III Chest pain , negative serial troponin. r/o ACS Acute on Chronic CHF, unknown EF. HTN DM Proteinuria, 3.3 g/g on UPCR on 10/18/25 Fluid overload Metabolic acidosis Hypothyroidism Plan: DC Lasix IV. can likely resume Lasix 40 mg PO daily tomorrow, and needs to continue upon discharge. fluid restriction edema significantly improved Amlodipine 10 mg daily sodium bicarb 650 mg PO BID Resume levothyroxine Obtain 2D Echo Cardiology consult Strict I&Os Plan discussed with: Patient SAMSON SABA MD Oct 20, 2025 07:18
[2025-10-20 09:00] VITALS: BP 137/76; PULSE 75; RESP 18; TEMP 97.8; O2SAT 90
[2025-10-20 13:00] VITALS: BP 113/60; PULSE 62; RESP 18; TEMP 98.2; O2SAT 97
--- NOTE | 2025-10-20 13:28 | DVHSR ---
APPROVED REPORT EXAM: Two-dimensional and M-mode echocardiogram with Doppler and color Doppler. Blood Pressure: 153/76 mmHg INDICATION ef RISK FACTORS Height: 5' 5", Weight: 184 DIMENSIONS LVDd 4.3 (3.8-5.7cm) LA (2D) 4.5 (1.9-4.0cm) Aortic Root 2.7 (2.0-3.7cm) LVDs 2.9 (2.5-4.0cm) LA (MM) (1.9-4.0cm) Aortic Cusp Exc 1.7 (1.5-2.0cm) EF (%) 60.0 (55-70%) Rt. Atrium 3.7 (1.9-4.0cm) Asc. Aorta cm IVSd 1.1 (0.7-1.1cm) RV (D) (1.8-2.4cm) PWd 1.1 (0.7-1.1cm) Mitral Valve Mitral Mitral Stenosis E wave 1.10m/s MV Mean GR. mmHg A wave 1.10m/s MV Peak GR. mmHg E/A ratio 1.0 2D MVA cm2 Aortic Valve Aortic Valve Aortic Stenosis V1 0.90m/s AO Mean GR. 5mmHg V2 1.40m/s AO Peak GR. 9mmHg LVOT Diameter 2.3 (1.8-2.4cm) Doppler HIWOT 2.67cm2 Pulmonic Valve V2 0.70m/s Conclusion 1-Normal right and left ventricle systolic function with estimated ejection fraction of 60%. Normal LV wall motion 2-Left atrial dilatation 3-No significant valvular pathology was seen
--- NOTE | 2025-10-20 14:33 | DVHPN2 ---
Subjective The patient seen and examined at bedside, still have shortness of breath. The patient on 2 L of oxygen. Reviewed: Care Plan, H&P, Labs, Medications, Previous Orders, Radiology Changes from previous H/P or p: No Changes Objective Vitals Vital Signs Date Time Temp Pulse Resp B/P (MAP) Pulse Ox O2 Delivery O2 Flow Rate FiO2 10/20/25 13:00 98.2 62 18 113/60 (77) 97 98.2 10/20/25 08:00 Room Air* 0 21 Intake/Output Intake and Output 10/20/25 07:00 Intake Total 540 ml Output Total 1700 ml Balance -1160 ml Intake Oral 540 ml Output Urine Total 1700 ml General Appearance: Alert, Oriented X3, Cooperative, No acute distress HEENT: Atraumatic, PERRLA, EOMI, Mucous membr. moist/pink Neck: Supple Lungs: Clear to auscultation, Normal air movement Cardiovascular: Regular rate, Normal S1, Normal S2, No murmurs, Gallops Abdomen: Normal bowel sounds, Soft, No tenderness Extremities: Other Neuro: Cranial nerves 3-12 NL Psych/Mental Status: Mental status NL Medications Current Medications Medications Dose Ordered Sig/Shawn Route Start Time Stop Time Status Last Admin Dose Admin Amlodipine Besylate 10 mg DAILY PO 10/18/25 10:00 10/20/25 09:08 10 MG Sodium Bicarbonate 650 mg BID PO 10/18/25 10:00 10/20/25 09:09 650 MG Hydralazine HCl 10 mg Q6HP PRN PO 10/17/25 23:00 10/18/25 00:03 10 MG Diagnostic Test (Pha) 1 strip ACHS 10/18/25 07:00 10/20/25 11:14 1 STRIP Insulin Human Regular ACHS SC 10/18/25 07:00 10/20/25 11:15 3 UNITS Dextrose 50 ml UD PRN IV 10/17/25 23:00 Ondansetron HCl 4 mg Q4HP PRN IV 10/17/25 23:00 Acetaminophen 650 mg Q6HP PRN PO 10/17/25 23:00 10/18/25 02:43 650 MG Laboratory Results Laboratory Tests 10/20/25 05:35 Chemistry Test 10/20/25 05:35 Calcium Level 9.1 mg/dL (8.7-10.4) Magnesium Level 2.6 mg/dL (1.6-2.6) Urinalysis Test 10/18/25 23:11 Urine Color Light-yellow (Yellow) Urine Clarity Clear (Clear) Urine pH 7.0 (5.0-9.0) Urine Specific [place] 1.011 (1.001-1.035) Urine Protein 2+ (Negative) H Urine Ketones Negative (Negative) Urine Blood Trace /uL (Negative) H Urine Nitrite Negative (Negative) Urine Bilirubin Negative (Negative) Urine Urobilinogen Normal mg/dL (Negative) Urine Leukocyte Esterase Negative /uL (Negative) Urine RBC 2 /hpf (0 - 4) Urine Microscopic WBC 1 /HPF (0-5) Urine Squamous Epithelial Cells Few /hpf (<5) Urine Bacteria None seen /hpf (None Seen) Urine Creatinine 54.62 mg/dL (30.0-125.0) Urine Protein/Creatinine Ratio 3.36 Urine Glucose 4+ mg/dL (Normal) H Urine Total Protein 183.4 mg/dL (1-14) H Labs and/or images reviewed: Labs reviewed by me Assessment/Plan Assessment/Plan Acute renal failure /Chronic renal failure stage 3 Hyperkalemia Diabetes mellitus Hypertension Bilateral LE edema Muscle spasm, bilateral UE and LE Acute Congestive Heart failure, type unknown Continue current management I will check her Magnesium I will start her on SSI moderate scale Appreciate writing center director input I will follow up with 2D echo. Continue Lasix Cardiology consult. Plan discussed with: Patient, Spouse My Orders Orders - NORY ALMANZA MD Procedure Category Date Status Time Complete Blood Count LAB 10/21/25 Verified 05:00 Complete Blood Count LAB 10/22/25 Verified 05:00 Basic Metabolic Panel LAB 10/21/25 Verified 05:00 Basic Metabolic Panel LAB 10/22/25 Verified 05:00 Date of Service: Oct 20, 2025 Billing Provider: NORY ALMANZA MD Common Visit Codes: [id number] INP/OBS CARE(HIGH) NORY ALMANZA MD Oct 20, 2025 14:33
--- NOTE | 2025-10-20 15:58 | DVHINCON2 ---
Date Seen: Oct 20, 2025 Referring Physician MD Ashley Reason for Consultation CHF History of Present Illness This is a Indonesian-speaking 55-year-old female who presented to the emergency room with a chief complaint of shortness of breath for over one week. The patient complains of progressive SOB associated with increased abdominal girth, bilateral lower extremity edema, headache, chest heaviness, and an associated systolic blood pressure in the 160s mmHg prompting her to seek further medical attention. At time of assessment the patient's symptoms had resolved. She underwent a 12 lead electrocardiogram revealing a normal sinus rhythm. Serial troponin levels are negative. BNP level is 195.00 pg/mL. Significant medical history includes advanced chronic kidney disease stage 3, insulin-dependent diabetes mellitus, hypertension, thyroid disease, anxiety, and obesity. Past Medical History Past medical history reviewed. No other significant than mentioned above. Past Surgical History Cholecystectomy Appendectomy Hysterectomy Left knee surgery Left eye surgery Family History: Diabetes mellitus G8 MOTHER G8 FATHER Family History Family history reviewed. Not significant for cardiovascular disease. Social History Denies the use of illicit drugs, alcohol, or tobacco use. Allergies: Coded Allergies: NO KNOWN ALLERGIES (Unverified , 09/19/25) Home Meds Reported Medications Dapagliflozin Propanediol (Farxiga) 10 Mg Tab, 5 MG PO DAILY, TAB 10/18/25 Insulin Glargine (Toujeo Solostar) 300 Unit/Ml Inj, SC 10/18/25 Docusate Sodium (Docusate Sodium) 100 Mg Cap, 1 CAP PO DAILY 10/18/25 Levothyroxine Sodium (Levothyroxine Sodium) 125 Mcg Tab, 1 TAB PO DAILY 10/18/25 Gabapentin (Gabapentin) 300 Mg Cap, 1 CAP PO BID 10/18/25 Hydralazine Hcl (Hydralazine Hcl) 50 Mg Tab, 1 TAB PO TID 10/18/25 Amlodipine Besylate (Amlodipine Besylate) 10 Mg Tab, 1 TAB PO DAILY 10/18/25 Atorvastatin Calcium (ATORVASTATIN CALCIUM) 40 Mg Tab, 1 TAB PO 10/18/25 Aspirin (Aspirin Low Dose) 81 Mg Tab, 1 TAB PO DAILY 10/18/25 Ergocalciferol (Vitamin D) 50,000 Unit Cap, 1 CAP PO QWEEKLY 10/18/25 Glipizide (Glipizide) 5 Mg Tab, 1 TAB PO BID 10/18/25 Sodium Zirconium Cyclosilicate (Lokelma) 10 Gm Juan Carlos, 1 PKT PO DAILY 10/18/25 Lisinopril (Lisinopril) 20 Mg Tab, 1 TAB PO DAILY 10/18/25 Home Meds Home medications reviewed. Review of Systems Constitutional: No symptom reported Ears, Nose, & Throat: No symptom reported Eyes: No symptom reported Neurological: BRADLEY Pulmonary/Respiratory: SOB Cardiovascular: Chest heaviness Gastrointestinal: Increased abdominal girth Genitourinary: No symptom reported Musculoskeletal: BLE edema Skin: No symptom reported Psychiatric: No symptom reported Endocrine: No symptom reported Hemotologic/Lymphatic: No symptom reported Vital Signs Vital Signs Date Time Temp Pulse Resp B/P (MAP) Pulse Ox O2 Delivery O2 Flow Rate FiO2 10/20/25 13:00 98.2 62 18 113/60 (77) 97 98.2 10/20/25 08:00 Room Air* 0 21 Physical Exam General Appearance: Cooperative. Well developed. Obese. In no acute distress Head Exam: Normal inspection Neck Exam: Normal inspection. Non-tender. Normal alignment Pulmonary/Respiratory: Chest non-tender. Clear bilateral breath sounds Cardiovascular/Chest: Regular rate and rhythm. S1, S2. NSR. No murmurs. No JVD. Peripheral Pulses: 2+ Radial (R). 2+ Radial (L). 2+ Pedal (R). 2+ Pedal (L) Abdominal Exam: Normal bowel sounds. Soft. Ankle Exam: Negative ankle edema Lower extremities: Negative lower extremity edema Neuro/Mental Status: A&O x4. Coherent Thoughts/Psych: Normal thought pattern. Appropriate mood and affect. Good judgement and insight Appearance: In no acute distress Skin Exam: Normal inspection. Normal color. Warm. Dry Labs/Diagnostic Data Labs Test 10/20/25 11:09 10/20/25 05:35 10/18/25 23:11 10/18/25 13:04 Range/Units POC Glucose 199 H 70-106 mg/dl White Blood Count 6.4 4.4-10.8 10^3/uL Red Blood Count 4.23 4.0-5.20 10^6/uL Hemoglobin 12.7 # 12.2-16.2 g/dL Hematocrit 37.4 # 36.0-46.0 % Mean Corpuscular Volume 88.4 80.0-100.0 fL Mean Corpuscular Hemoglobin 30.1 28.0-32.0 pg Mean Corpuscular Hemoglobin Concent 34.0 32.0-36.0 g/dL Red Cell Distribution Width 13.5 11.8-14.3 % Platelet Count 313 140-450 10^3/uL Mean Platelet Volume 8.6 6.9-10.8 fL Neutrophils (%) (Auto) 67.3 37.0-80.0 % Lymphocytes (%) (Auto) 18.6 10.0-50.0 % Monocytes (%) (Auto) 9.3 0.0-12.0 % Eosinophils (%) (Auto) 4.2 0.0-7.0 % Basophils (%) (Auto) 0.6 0.0-2.0 % Neutrophils # (Auto) 4.3 1.6-8.6 10 ^3/uL Lymphocytes # (Auto) 1.2 0.4-5.4 10 ^3/uL Monocytes # (Auto) 0.6 0-1.3 10 ^3/uL Eosinophils # (Auto) 0.3 0-0.8 10 ^3/uL Basophils # (Auto) 0 0-0.2 10 ^3/uL Nucleated Red Blood Cells 0.0 % Sodium Level 143 136-145 mmol/L Potassium Level 4.2 3.5-5.1 mmol/L Chloride Level 106 98-107 mmol/L Carbon Dioxide Level 25 20-31 mmol/L Anion Gap 12 5-15 Blood Urea Nitrogen 38 H 9-23 mg/dL Creatinine 2.57 H 0.550-1.02 mg/dL Glomerular Filtration Rate Calc 22 >90 mL/min BUN/Creatinine Ratio 14.8 10.0-20.0 Serum Glucose 171 H 74-106 mg/dL Calcium Level 9.1 8.7-10.4 mg/dL Magnesium Level 2.6 1.6-2.6 mg/dL Urine Color Light-yellow Yellow Urine Clarity Clear Clear Urine pH 7.0 5.0-9.0 Urine Specific [place] 1.011 1.001-1.035 Urine Protein 2+ H Negative Urine Ketones Negative Negative Urine Blood Trace H Negative /uL Urine Nitrite Negative Negative Urine Bilirubin Negative Negative Urine Urobilinogen Normal Negative mg/dL Urine Leukocyte Esterase Negative Negative /uL Urine RBC 2 0 - 4 /hpf Urine Microscopic WBC 1 0-5 /HPF Urine Squamous Epithelial Cells Few <5 /hpf Urine Bacteria None seen None Seen /hpf Urine Creatinine 54.62 30.0-125.0 mg/dL Urine Protein/Creatinine Ratio 3.36 Urine Glucose 4+ H Normal mg/dL Urine Total Protein 183.4 H 1-14 mg/dL Phosphorus Level 5.1 2.4-5.1 mg/dL Test 10/17/25 20:15 10/17/25 19:47 10/17/25 18:55 Range/Units Troponin I High Sensitivity 5 </=34 ng/L Influenza Type A Antigen Negative Negative Influenza Type B Antigen Negative Negative SARS-CoV-2 Antigen (Rapid) Negative NEGATIVE D-Dimer, Quantitative 0.76 H 0.0-0.49 mg/L FEU Total Bilirubin 0.4 0.2-1.0 mg/dL Aspartate Amino Transferase (AST) 22 13-40 U/L Alanine Aminotransferase (ALT) 26 7-40 U/L Alkaline Phosphatase 143 H 46-116 U/L B-Type Natriuretic Peptide 195.00 0-100 pg/mL Total Protein 7.7 5.7-8.2 g/dL Albumin 4.4 3.2-4.8 g/dL Assessment DANYELL on CKD stage 3 Renocardiac syndrome type 4 Hypertensive urgency Insulin-dependent diabetes mellitus Thyroid disease Obesity Plan/Recommendation (Dr. Grady) The patient underwent a transthoracic echocardiogram revealing a LVEF of 60% with normal LV wall motion, left atrial dilatation, and no significant valvular pathology seen. She presents with renocardiac syndrome type 4. Continue Nephrology recommendations and aggressive blood pressure control. There is no further cardiac workup indicated at this time. Kindly call if in need of further recommendations. Thank you for allowing us to participate in this patient's care. This medical document was created using an electronic medical record system with voice recognition software and computerized dictation system. Although this document has been carefully reviewed, there might still be some phonetic and typographical errors. Occasional wrong-word or ``sound-alike substitutions may have occurred due to the inherent limitations of voice recognition software. These areas are purely typographical due to imperfections of the software programs and do not reflect any compromise in the patient's medical care. Please read the chart carefully and recognize, using context, where these substitutions have occurred. Plan discussed with: Patient, Other NYHA Physical activity limitations: NA Date of Service: Oct 20, 2025 Billing Provider: JULIANNE QURESHI Cardiology Common Codes: 26220-RUBCNZM INP/OBS CARE (High) JULIANNE QURESHI Oct 20, 2025 15:58
[2025-10-20 17:00] VITALS: BP 134/66; PULSE 83; RESP 18; TEMP 98.1; O2SAT 95
[2025-10-20 21:00] VITALS: BP 119/75; PULSE 77; RESP 18; TEMP 98.1; O2SAT 96
[2025-10-21 01:00] VITALS: BP 131/63; PULSE 73; RESP 18; TEMP 97.8; O2SAT 95
[2025-10-21 05:00] VITALS: BP 132/66; PULSE 69; RESP 18; TEMP 97.8; O2SAT 99
[2025-10-21] MEDS: LEVOTHYROXINE SODIUM 25 MCG TAB PO SCH (06:23)
[2025-10-21] MEDS: LEVOTHYROXINE SODIUM 100 MCG TAB PO SCH (06:23)
[2025-10-21 07:16] LABS: Hematocrit 35.9 % (36.0-46.0); Hemoglobin 12.0 g/dL (12.2-16.2); Mean Corpuscular Hemoglobin 29.5 pg (28.0-32.0); Mean Corpuscular Volume 88.0 fL (80.0-100.0); Nucleated Red Blood Cells % 0.1 %
[2025-10-21 07:22] LABS: Anion Gap 11 (5-15); Carbon Dioxide 24 mmol/L (20-31); Chloride 104 mmol/L (98-107); Potassium 4.6 mmol/L (3.5-5.1); Sodium 139 mmol/L (136-145)
[2025-10-21 07:29] LABS: BUN/Creatinine Ratio 11.7 (10.0-20.0); Calcium 9.0 mg/dL (8.7-10.4)
[2025-10-21 07:30] LABS: Blood Urea Nitrogen 30 mg/dL (9-23); Glucose 170 mg/dL (74-106)
[2025-10-21 09:00] VITALS: BP 109/66; PULSE 77; RESP 20; TEMP 97.5; O2SAT 99
--- NOTE | 2025-10-21 11:25 | DVHPN2 ---
Progress Note - Dictate Date Seen: Oct 21, 2025 Medical Necessity Reason Pt with a Central, PICC or Fol: No Subjective lower extremity swelling has resolved. vital signs Vital Sign Date Time Temp Pulse Resp B/P (MAP) Pulse Ox O2 Delivery O2 Flow Rate FiO2 10/21/25 09:04 109/66 10/21/25 09:00 97.5 77 20 99 97.5 10/21/25 08:00 Room Air* 0 21 Total Intake and Output 10/20/25 10/20/25 10/21/25 15:00 23:00 07:00 Intake Total 550 ml 500 ml Output Total 300 ml Balance 550 ml 200 ml medications Current Medications Medications Dose Ordered Sig/Shawn Route Start Time Stop Time Status Last Admin Dose Admin Amlodipine Besylate 10 mg DAILY PO 10/18/25 10:00 10/21/25 09:04 10 MG Sodium Bicarbonate 650 mg BID PO 10/18/25 10:00 10/21/25 09:04 650 MG Hydralazine HCl 10 mg Q6HP PRN PO 10/17/25 23:00 10/18/25 00:03 10 MG Diagnostic Test (Pha) 1 strip ACHS 10/18/25 07:00 10/21/25 06:17 1 STRIP Insulin Human Regular ACHS SC 10/18/25 07:00 10/21/25 06:22 3 UNITS Dextrose 50 ml UD PRN IV 10/17/25 23:00 Ondansetron HCl 4 mg Q4HP PRN IV 10/17/25 23:00 Acetaminophen 650 mg Q6HP PRN PO 10/17/25 23:00 10/21/25 04:14 650 MG Levothyroxine Sodium 100 mcg QAM@0600 PO 10/21/25 06:00 10/21/25 06:23 100 MCG Levothyroxine Sodium 25 mcg QAM@0600 PO 10/21/25 06:00 10/21/25 06:23 25 MCG objective Gen: NAD HEENT: NC,AT Lungs: CTA b/l Cardiac: RRR, no murmur Abd: soft, no tenderness Ext: trace edema b/l legs Neuro: no focal deficits laboratory and microbiology Laboratory Tests 10/21/25 05:34 Test 10/21/25 05:34 Range/Units Serum Glucose 170 H 74-106 mg/dL Assessment/Plan Assessment: DANYELL secondary to cardiorenal syndrome CKD III Chest pain , negative serial troponin. r/o ACS Acute on Chronic CHF, unknown EF. HTN DM Proteinuria, 3.3 g/g on UPCR on 10/18/25 Fluid overload Metabolic acidosis Hypothyroidism Plan: Cr is stable ~ 2.57 mg/dl Resume with Lasix 40 mg PO daily. continue upon discharge. fluid restriction edema significantly improved Amlodipine 10 mg daily sodium bicarb 650 mg PO BID Resume levothyroxine Obtain 2D Echo Cardiology consult Strict I&Os Plan discussed with: Patient SAMSON SABA MD Oct 21, 2025 11:25
[2025-10-21 13:00] VITALS: BP 143/77; PULSE 75; RESP 20; TEMP 97.5; O2SAT 98
--- NOTE | 2025-10-21 13:59 | DVHPN2 ---
Subjective The patient seen and examined at bedside, still have shortness of breath. The patient on 2 L of oxygen. Reviewed: Care Plan, H&P, Labs, Medications, Previous Orders, Radiology Objective Vitals Vital Signs Date Time Temp Pulse Resp B/P (MAP) Pulse Ox O2 Delivery O2 Flow Rate FiO2 10/21/25 09:04 109/66 10/21/25 09:00 97.5 77 20 99 97.5 10/21/25 08:00 Room Air* 0 21 Intake/Output Intake and Output 10/21/25 07:00 Intake Total 1050 ml Output Total 300 ml Balance 750 ml Intake Oral 1050 ml Output Urine Total 300 ml # Voids 4 General Appearance: Alert, Oriented X3, Cooperative, No acute distress HEENT: Atraumatic, PERRLA, EOMI, Mucous membr. moist/pink Neck: Supple Lungs: Clear to auscultation, Normal air movement Cardiovascular: Regular rate, Normal S1, Normal S2, No murmurs, Gallops Abdomen: Normal bowel sounds, Soft, No tenderness Extremities: Other Neuro: Cranial nerves 3-12 NL Psych/Mental Status: Mental status NL Medications Current Medications Medications Dose Ordered Sig/Shawn Route Start Time Stop Time Status Last Admin Dose Admin Amlodipine Besylate 10 mg DAILY PO 10/18/25 10:00 10/21/25 09:04 10 MG Sodium Bicarbonate 650 mg BID PO 10/18/25 10:00 10/21/25 09:04 650 MG Hydralazine HCl 10 mg Q6HP PRN PO 10/17/25 23:00 10/18/25 00:03 10 MG Diagnostic Test (Pha) 1 strip ACHS 10/18/25 07:00 10/21/25 11:33 1 STRIP Insulin Human Regular ACHS SC 10/18/25 07:00 10/21/25 11:34 4 UNITS Dextrose 50 ml UD PRN IV 10/17/25 23:00 Ondansetron HCl 4 mg Q4HP PRN IV 10/17/25 23:00 Acetaminophen 650 mg Q6HP PRN PO 10/17/25 23:00 10/21/25 04:14 650 MG Levothyroxine Sodium 100 mcg QAM@0600 PO 10/21/25 06:00 10/21/25 06:23 100 MCG Levothyroxine Sodium 25 mcg QAM@0600 PO 10/21/25 06:00 10/21/25 06:23 25 MCG Furosemide 40 mg DAILY PO 10/22/25 10:00 Laboratory Results Laboratory Tests 10/21/25 05:34 Chemistry Test 10/21/25 05:34 Calcium Level 9.0 mg/dL (8.7-10.4) Urinalysis Test 10/18/25 23:11 Urine Color Light-yellow (Yellow) Urine Clarity Clear (Clear) Urine pH 7.0 (5.0-9.0) Urine Specific [place] 1.011 (1.001-1.035) Urine Protein 2+ (Negative) H Urine Ketones Negative (Negative) Urine Blood Trace /uL (Negative) H Urine Nitrite Negative (Negative) Urine Bilirubin Negative (Negative) Urine Urobilinogen Normal mg/dL (Negative) Urine Leukocyte Esterase Negative /uL (Negative) Urine RBC 2 /hpf (0 - 4) Urine Microscopic WBC 1 /HPF (0-5) Urine Squamous Epithelial Cells Few /hpf (<5) Urine Bacteria None seen /hpf (None Seen) Urine Creatinine 54.62 mg/dL (30.0-125.0) Urine Protein/Creatinine Ratio 3.36 Urine Glucose 4+ mg/dL (Normal) H Urine Total Protein 183.4 mg/dL (1-14) H Assessment/Plan Assessment/Plan Acute renal failure /Chronic renal failure stage 3 Hyperkalemia Diabetes mellitus Hypertension Bilateral LE edema Muscle spasm, bilateral UE and LE Acute Congestive Heart failure, type unknown Continue current management I will check her Magnesium I will start her on SSI moderate scale Appreciate supervisor decorating input I will follow up with 2D echo. Continue Lasix Cardiology consult. My Orders Orders - NORY ALMANZA MD Procedure Category Date Status Time * Cardiology Consult CONS 10/20/25 Transmitted 14:32 NORY ALMANZA MD Oct 21, 2025 13:58
[2025-10-21] MEDS ORDERED: SODI650T PO (14:00)
[2025-10-21] MEDS ORDERED: FURO40TA4 PO (14:00)
--- NOTE | 2025-10-21 14:03 | DVHDS2 ---
Discharge Summary Date of Admission Oct 17, 2025 at 22:57 Date of Discharge: Oct 21, 2025 Admitting Diagnosis Acute renal failure /Chronic renal failure stage 3 Hyperkalemia Diabetes mellitus Hypertension Bilateral LE edema Muscle spasm, bilateral UE and LE Acute Congestive Heart failure, type unknown Labs/Diagnostic Data: Laboratory Results Test 10/21/25 11:11 10/21/25 05:34 10/20/25 05:35 10/18/25 23:11 POC Glucose 206 mg/dl (70-106) White Blood Count 6.4 10^3/uL (4.4-10.8) Red Blood Count 4.08 10^6/uL (4.0-5.20) Hemoglobin 12.0 g/dL (12.2-16.2) Hematocrit 35.9 % (36.0-46.0) Mean Corpuscular Volume 88.0 fL (80.0-100.0) Mean Corpuscular Hemoglobin 29.5 pg (28.0-32.0) Mean Corpuscular Hemoglobin Concent 33.5 g/dL (32.0-36.0) Red Cell Distribution Width 13.1 % (11.8-14.3) Platelet Count 294 10^3/uL (140-450) Mean Platelet Volume 8.5 fL (6.9-10.8) Neutrophils (%) (Auto) 63.8 % (37.0-80.0) Lymphocytes (%) (Auto) 20.6 % (10.0-50.0) Monocytes (%) (Auto) 10.1 % (0.0-12.0) Eosinophils (%) (Auto) 4.9 % (0.0-7.0) Basophils (%) (Auto) 0.6 % (0.0-2.0) Neutrophils # (Auto) 4.1 10 ^3/uL (1.6-8.6) Lymphocytes # (Auto) 1.3 10 ^3/uL (0.4-5.4) Monocytes # (Auto) 0.6 10 ^3/uL (0-1.3) Eosinophils # (Auto) 0.3 10 ^3/uL (0-0.8) Basophils # (Auto) 0 10 ^3/uL (0-0.2) Nucleated Red Blood Cells 0.1 % Sodium Level 139 mmol/L (136-145) Potassium Level 4.6 mmol/L (3.5-5.1) Chloride Level 104 mmol/L (98-107) Carbon Dioxide Level 24 mmol/L (20-31) Anion Gap 11 (5-15) Blood Urea Nitrogen 30 mg/dL (9-23) Creatinine 2.57 mg/dL (0.550-1.02) Glomerular Filtration Rate Calc 22 mL/min (>90) BUN/Creatinine Ratio 11.7 (10.0-20.0) Serum Glucose 170 mg/dL (74-106) Calcium Level 9.0 mg/dL (8.7-10.4) Magnesium Level 2.6 mg/dL (1.6-2.6) Urine Color Light-yellow (Yellow) Urine Clarity Clear (Clear) Urine pH 7.0 (5.0-9.0) Urine Specific [place] 1.011 (1.001-1.035) Urine Protein 2+ (Negative) Urine Ketones Negative (Negative) Urine Blood Trace /uL (Negative) Urine Nitrite Negative (Negative) Urine Bilirubin Negative (Negative) Urine Urobilinogen Normal mg/dL (Negative) Urine Leukocyte Esterase Negative /uL (Negative) Urine RBC 2 /hpf (0 - 4) Urine Microscopic WBC 1 /HPF (0-5) Urine Squamous Epithelial Cells Few /hpf (<5) Urine Bacteria None seen /hpf (None Seen) Urine Creatinine 54.62 mg/dL (30.0-125.0) Urine Protein/Creatinine Ratio 3.36 Urine Glucose 4+ mg/dL (Normal) Urine Total Protein 183.4 mg/dL (1-14) Test 10/18/25 13:04 10/17/25 20:15 10/17/25 19:47 10/17/25 18:55 Phosphorus Level 5.1 mg/dL (2.4-5.1) Troponin I High Sensitivity 5 ng/L (</=34) Influenza Type A Antigen Negative (Negative) Influenza Type B Antigen Negative (Negative) SARS-CoV-2 Antigen (Rapid) Negative (NEGATIVE) D-Dimer, Quantitative 0.76 mg/L FEU (0.0-0.49) Total Bilirubin 0.4 mg/dL (0.2-1.0) Aspartate Amino Transferase (AST) 22 U/L (13-40) Alanine Aminotransferase (ALT) 26 U/L (7-40) Alkaline Phosphatase 143 U/L (46-116) B-Type Natriuretic Peptide 195.00 pg/mL (0-100) Total Protein 7.7 g/dL (5.7-8.2) Albumin 4.4 g/dL (3.2-4.8) Other Laboratory Tests 10/21/25 05:34 Brief Hx & Hospital Course: 55-year-old female presents for evaluation of shortness for breath. Patient reports a one-week history of shortness for breath with associated dizziness. She also reports mild bilateral lower extremity edema. Denies cough or fever. No abdominal pain. The patient was admitted. She found to have acute kidney injury/CKD3. The patient also has hyperkalemia with K in 5.0s range. The patient was seen by her manufacturing accountant. Recommend: Continue Lasix 40 mg IV daily .fluid restriction .edema has been improving. Lokelma 10 g PO x1 for hyperkalemia. UA, UPCR. Continue Amlodipine 10 mg daily ,sodium bicarb 650 mg PO BID ,Resume levothyroxine. Obtain 2D Echo. The patient also complains of chest pain. Cardiology was consulted . Recommend echo, which show:transthoracic echocardiogram revealing a LVEF of 60% with normal LV wall motion, left atrial dilatation, and no significant valvular pathology seen. No further cardiac work up per cardiology. I discharge her home today. follow up with PCP 1-2 week. Follow up with her manufacturing accountant, dr Davis per schedule. Activity as tolerate. Diet : renal diet. Physical examination: General Appearance: Alert, Oriented X3, Cooperative, No acute distress HEENT: Atraumatic, PERRLA, EOMI, Mucous membr. moist/pink Neck: Supple Lungs: Clear to auscultation, Normal air movement Cardiovascular: Regular rate, Normal S1, Normal S2, No murmurs, Gallops Abdomen: Normal bowel sounds, Soft, No tenderness Extremities: Other (+2 edema bilateral) Neuro: Cranial nerves 3-12 NL Psych/Mental Status: Mental status NL Condition at Discharge: Stable Final Diagnosis/Problems List Acute renal failure /Chronic renal failure stage 3 Hyperkalemia Diabetes mellitus Hypertension Bilateral LE edema Muscle spasm, bilateral UE and LE Acute Congestive Heart failure, type unknown Discharge Disposition: Home Discharge Instruct/Medications Diet: Renal Activity: No Restrictions, As Tolerated Follow Up/Referral: pcp 1-2 weeks [employer] Supervisor, Dr Fontaine group per schedule Medications: See med list Scheduled Amlodipine Besylate (Amlodipine Besylate), 1 TAB PO DAILY, (Reported) Aspirin (Aspirin Low Dose), 1 TAB PO DAILY, (Reported) Dapagliflozin Propanediol (Farxiga), 5 MG PO DAILY, (Reported) Docusate Sodium (Docusate Sodium), 1 CAP PO DAILY, (Reported) Ergocalciferol (Vitamin D), 1 CAP PO QWEEKLY, (Reported) Furosemide (Furosemide), 40 MG PO DAILY Gabapentin (Gabapentin), 1 CAP PO BID, (Reported) Glipizide (Glipizide), 1 TAB PO BID, (Reported) Hydralazine Hcl (Hydralazine Hcl), 1 TAB PO TID, (Reported) Levothyroxine Sodium (Levothyroxine Sodium), 1 TAB PO DAILY, (Reported) Lisinopril (Lisinopril), 1 TAB PO DAILY, (Reported) Sodium Bicarbonate (Sodium Bicarbonate), 650 MG PO BID Sodium Zirconium Cyclosilicate (Lokelma), 1 PKT PO DAILY, (Reported) Miscellaneous Medications Atorvastatin Calcium (Atorvastatin Calcium), 1 TAB PO, (Reported) Insulin Glargine (Toujeo Solostar), SC, (Reported) Discharge Statement: "Patient was advised to return to the ER or call 911 if any headaches, dizziness, shortness of breath, chest pain, abdominal pain, bleeding, fevers, or worsening of medical condition. Patient was counseled about treatment plan, medications, possible side effects, patientverbalized understanding. All questions were answered to the best of my ability. This discharge took greater then 30 minutes in planning, reviewing documentation, counseling the patient, and discussing with other team members." ASSESSMENT ASSESSMENT Assessment Bilateral LE edema DANYELL Date of Service: Oct 21, 2025 Billing Provider: NORY ALMANZA MD Common Visit Codes: 65237-FKV/OBS DISCH DAY >30min NORY ALMANZA MD Oct 21, 2025 14:03
[2025-10-21 15:48] VITALS: BP 109/66
[2025-10-21 16:47] VITALS: BP 125/68; PULSE 77; RESP 20; TEMP 97.2; O2SAT 98
[2025-10-22] MEDS ORDERED: FUROSEMIDE 40 MG TAB PO SCH (10:00)
== END 2025-10-21 16:25 | disposition home or self-care (01) | DRG 683 ==
LOC: ER 17:32 → OVERFLOW 22:57 → CENTRAL 23:52
PROVIDERS: ADMIT Internal Medicine; ATTEND Internal Medicine
DX: N17.9 Acute kidney failure, unspecified (principal); E87.20 Acidosis, unspecified; I50.32 Chronic diastolic (congestive) heart failure; I13.0 Hypertensive heart and chronic kidney disease with heart failure and stage 1 through stage 4 chronic kidney disease, or unspecified chronic kidney disease; E03.9 Hypothyroidism, unspecified; N18.30 Chronic kidney disease, stage 3 unspecified; E11.22 Type 2 diabetes mellitus with diabetic chronic kidney disease; I16.0 Hypertensive urgency; E87.5 Hyperkalemia; H54.7 Unspecified visual loss; M62.838 Other muscle spasm; R80.9 Proteinuria, unspecified; Z20.822 Contact with and (suspected) exposure to COVID-19; F41.9 Anxiety disorder, unspecified; Z79.4 Long term (current) use of insulin; Z83.3 Family history of diabetes mellitus; Z90.710 Acquired absence of both cervix and uterus; Z90.49 Acquired absence of other specified parts of digestive tract; Z79.899 Other long term (current) drug therapy
CPT/HCPCS: 36415; 71045; 80048; 80053; 81001; 82570; 82962; 83735; 83880; 84100; 84156; 84484; 85025; 85379; 87426; 87804; 93005; 93306; 96374; G0378; J1815